=== PATIENT | male | born 1940 | race Two or more races ===

== ENCOUNTER 2021-12-24 17:04 | Inpatient (IN) | payer MEDICARE, OTHER ==
[~2021-12-24] VITALS: Ht 182.9 cm; Wt 81.6 kg
--- NOTE | 2021-12-24 17:22 | NUR ---
Pt is medically cleared by Dr Sheppard.
[2021-12-24] MEDS ORDERED: MAGN400T8 PO (17:26)
[2021-12-24] MEDS ORDERED: MELA3TAB41 PO (17:26)
[2021-12-24] MEDS ORDERED: MAGN400O6 PO (17:26)
[2021-12-24] MEDS ORDERED: ASPI81TA31 PO (17:26)
[2021-12-24] MEDS ORDERED: ASCO500C18 PO (17:26)
[2021-12-24] MEDS ORDERED: FERR325T28 PO (17:26)
[2021-12-24] MEDS ORDERED: BUDE10.2 INH (17:26)
[2021-12-24] MEDS ORDERED: BISA10SU61 RC (17:26)
[2021-12-24] MEDS ORDERED: ACET325T53 PO (17:26)
[2021-12-24] MEDS ORDERED: DOCU100C36 PO (17:26)
[2021-12-24] MEDS ORDERED: TAMS-3 PO (17:26)
--- NOTE | 2021-12-24 17:55 | NUR ---
REPORT WAS GIVEN MHU RN. PT WAS TRANSFERED TO M[facility] ROOM #[id number].
[2021-12-24] MEDS ORDERED: HALOPERIDOL LACTATE 5 MG/1 ML VIAL IV ONE (18:00)
--- NOTE | 2021-12-24 18:02 | NUR ---
Dinner tray provided, pt ate 100% of food.
[2021-12-24] MEDS ORDERED: RISP1TAB7 PO ×2 (19:48)
[2021-12-24] MEDS ORDERED: MAGNESIUM HYDROXIDE 30 ML LIQUID UDC PO PRN (20:00)
[2021-12-24] MEDS ORDERED: MAG HYDROX/AL HYDROX/SIMETH 30 ML LIQUID UDC PO PRN (20:00)
[2021-12-24] MEDS ORDERED: ACETAMINOPHEN 325 MG TABLET PO PRN (20:00)
[2021-12-24] MEDS ORDERED: QUETIAPINE FUMARATE 25 MG TABLET PO PRN (20:00)
[2021-12-24] MEDS ORDERED: BLOOD SUGAR DIAGNOSTIC 1 EACH STRIP VI ONE (20:15)
[2021-12-24 20:48] VITALS: BP 120/63
[2021-12-24] MEDS: ZOLPIDEM 5 MG TABLET PO PRN (21:32)
[2021-12-24] MEDS ORDERED: HOME MED MISCELLANEOUS XX SCH (21:45)
--- NOTE | 2021-12-24 22:00 | NUR ---
ADMITTED AT [facility]OX 1850 81 YEARS OLD MALE TO [facility] ON A 14 DAYS HOLD FOR GD AND DTO. PER HOLD, PATIENT HAS BEEN AGGRESSIVE TOWARD STAFF THROWING OBJETS AT [facility]. HE WAS TAKEN TO [facility] AND PLACED ON HOLD. HOLD IS ON 01/06. UPON ADMISSION, PATIENT IS A/O X 1 HE IS ANXIOUS AND RESTLESS. HE WAS GIVEN SEROQUEL 12.5MG AND LATER AMBIEN 5MG. PATIENT WAS GIVEN HIS ADVISEMENT AND HE WAS INFORMED OF HIS HOLD, HE WAS GIVEN THE BOOKLET OF PATIENT'S RIGHT ON MENTAL HEALTH FACILITIES. PATIENT IS UNDER THE CARE OF DR LEW. MIKE ESCOBAR WAS CALLED TO HAVE PATIENT RECONCILED HIS MEDICATION, AWAITING FOR A CALL BACK. WILL CONTINUE Q15 MIN CHECKS.
[2021-12-25 07:30] VITALS: BP 117/54
[2021-12-25] MEDS ORDERED: BUDESONIDE 0.5 MG/2 ML NEBU NEB SCH (07:30)
[2021-12-25] MEDS ORDERED: ALBUTEROL SULFATE 2.5 MG/3 ML NEBU NEB SCH (07:35)
[2021-12-25] MEDS ORDERED: BISACODYL 10 MG SUPP.RECT RC SCH (09:00)
[2021-12-25] MEDS ORDERED: TAMSULOSIN HCL 0.4 MG CAP.SR.24H PO SCH (09:00)
[2021-12-25] MEDS: ASPIRIN 81 MG TAB.CHEW PO SCH (09:25)
[2021-12-25] MEDS: ASCORBIC ACID 500 MG TABLET PO SCH (09:25)
[2021-12-25] MEDS: FERROUS SULFATE 325 MG TABEC PO SCH (09:25)
[2021-12-25] MEDS: DOCUSATE SODIUM 100 MG CAPSULE PO SCH ×2 (09:25→17:35)
[2021-12-25] MEDS: MAGNESIUM OXIDE 400 MG TABLET PO SCH (09:25)
[2021-12-25] MEDS: FLUTICASONE/VILANTEROL 1 EACH BLST.W.DEV INH SCH (12:09)
[2021-12-25] MEDS ORDERED: ZIPRASIDONE MESYLATE 20 MG VIAL IM ONE (13:15)
[2021-12-25] MEDS ORDERED: risperiDONE-M 0.5 MG TAB.RAPDIS PO PRN (13:30)
[2021-12-25 16:00] VITALS: BP 145/64
[2021-12-25] MEDS ORDERED: RIVASTIGMINE PO (16:18)
[2021-12-25] MEDS: risperiDONE-M 0.5 MG TAB.RAPDIS PO SCH (18:08)
--- NOTE | 2021-12-25 18:45 | NUR ---
Received patient sleeping in his room. Patient is A/O X 1 to person. Pt. is confused, disoriented, forgetful, intrusive. Patient became agitated, combative, and started hitting the entrance door. Dr. Cervantes ordered Geodon 5 mg/0.25 ml IM at 13:16, security was called and 5 staff members were necessary to administer medication, but no force needed. Pt. is compliant with medications. Emotional support given. Fall and safety precautions implemented.
[2021-12-25 20:00] VITALS: BP 119/63
[2021-12-25] MEDS: RIVASTIGMINE TARTRATE 1.5 MG CAPSULE PO SCH (20:18)
[2021-12-25] MEDS: TAMSULOSIN HCL 0.4 MG CAP.SR.24H PO SCH (20:18)
--- NOTE | 2021-12-25 20:45 | NUR ---
RECEIVED PATIENT IN HIS ROOM SITTING IN HIS BED. HE IS NOTED A/O X 1. HE IS FORGETFUL, HE WONDERS AROUND THE UNIT. HE HAS POOR INSIGHT INTO HIS ADMISSION TO MHU. HE REQUITES MULTIPLE REDIRECTION, REALITY CHECKS AND REASSURANCE. PATIENT IS ABLE TO COMPLY WITH ALL HIS MEDICATION REGIMENT. NO AGGRESSIVE OR COMBATIVE BX NOTED AT THIS TIME. HE IS REASSURED FOR HIS SAFETY. SAFETY AND FALL PRECAUTIONS ARE IN PLACE. HIS V/S ARE STABLE. HE IS IN NO DISTRESS. HE WAS GIVEN PO FLUIDS AND SNACKS. WILL CONTINUE TO MONITOR.
[2021-12-25] MEDS: ZOLPIDEM 5 MG TABLET PO PRN (22:44)
[2021-12-26 08:12] VITALS: BP 122/68
[2021-12-26] MEDS: FERROUS SULFATE 325 MG TABEC PO SCH (08:51)
[2021-12-26] MEDS: ASPIRIN 81 MG TAB.CHEW PO SCH (08:51)
[2021-12-26] MEDS: DOCUSATE SODIUM 100 MG CAPSULE PO SCH ×2 (08:51→17:08)
[2021-12-26] MEDS: MAGNESIUM OXIDE 400 MG TABLET PO SCH (08:51)
[2021-12-26] MEDS: risperiDONE-M 0.5 MG TAB.RAPDIS PO SCH ×2 (08:51→17:08)
[2021-12-26] MEDS: FLUTICASONE/VILANTEROL 1 EACH BLST.W.DEV INH SCH (08:52)
[2021-12-26] MEDS: ASCORBIC ACID 500 MG TABLET PO SCH (08:52)
[2021-12-26] MEDS: RIVASTIGMINE TARTRATE 1.5 MG CAPSULE PO SCH ×2 (08:53→20:32)
[2021-12-26] MEDS ORDERED: BISACODYL 10 MG SUPP.RECT RC PRN (09:00)
--- NOTE | 2021-12-26 13:06 | NUR ---
14 DAYS PC HEARING ON HOLD FOR GD AND DTO.
--- NOTE | 2021-12-26 14:38 | NUR ---
DARREN Initial Discharge Note: Pt currently resides at [facility] [place] 2[facility] located at [address] [place] [address] ([phone]). DARREN will contact the facility to discuss pt's return to their facility upon discharge. DARREN will contact pt's daughter, Radha ([phone]) to discuss pt's discharge plan. DARREN will continue to work with pt, family and MD to ensure a safe and proper discharge plan.
--- NOTE | 2021-12-26 14:48 | NUR ---
patient is confused and disoriented wandering around in the unit, required frequent redirection .patient complaint with all po medication. unable to attend in group activity ,with poor insight and poor judgement will continue close motoring.
[2021-12-26 19:55] VITALS: BP 122/74
[2021-12-26] MEDS: ZOLPIDEM 5 MG TABLET PO PRN (20:33)
[2021-12-26] MEDS: TAMSULOSIN HCL 0.4 MG CAP.SR.24H PO SCH (20:33)
--- NOTE | 2021-12-27 02:01 | NUR ---
Patient received in the hallway, ambulatory, unket, A&ox1. Patient is confused, responding to internal stimuli, flight of ideas noted. Patient compliant with medications. Refused hygiene care, educated and explained risks and benefits of good hygiene, patient still refused. Unable to have meaningful conversation d/t confusion. Patient given Ambien prn w/ effectivity as patient slept well during shift. Frequent monitoring in place.
[2021-12-27 07:55] VITALS: BP 113/56
[2021-12-27] MEDS: FERROUS SULFATE 325 MG TABEC PO SCH (08:38)
[2021-12-27] MEDS: DOCUSATE SODIUM 100 MG CAPSULE PO SCH ×2 (08:38→16:49)
[2021-12-27] MEDS: ASPIRIN 81 MG TAB.CHEW PO SCH (08:38)
[2021-12-27] MEDS: RIVASTIGMINE TARTRATE 1.5 MG CAPSULE PO SCH ×2 (08:38→20:16)
[2021-12-27] MEDS: ASCORBIC ACID 500 MG TABLET PO SCH (08:38)
[2021-12-27] MEDS: MAGNESIUM OXIDE 400 MG TABLET PO SCH (08:38)
[2021-12-27] MEDS: risperiDONE-M 0.5 MG TAB.RAPDIS PO SCH ×2 (08:38→16:50)
[2021-12-27] MEDS: FLUTICASONE/VILANTEROL 1 EACH BLST.W.DEV INH SCH (08:41)
[2021-12-27 09:42] LABS: HEMATOCRIT 36.9 % (36.7-47.1); MEAN CORPUSCULAR HEMOGLOBIN 31.7 uug (23.8-33.4); MEAN CORPUSCULAR VOLUME 92.7 fL (73.0-96.2)
[2021-12-27 09:43] LABS: PLATELET COUNT (AUTO) 138 K/uL (152-348)
[2021-12-27] MEDS ORDERED: ZIPRASIDONE MESYLATE 20 MG VIAL IM ONE (13:30)
--- NOTE | 2021-12-27 13:30 | NUR ---
patient is confused and disoriented become agitated and aggressive, pacing in hallway unable to follow direction ,continue banding the exit door attempted to break it ,refused the PRN medication ,Dr. Cervantes notified with IM ordered.
[2021-12-27 16:15] VITALS: BP 113/58
[2021-12-27] MEDS: TAMSULOSIN HCL 0.4 MG CAP.SR.24H PO SCH (20:16)
[2021-12-27] MEDS: ZOLPIDEM 5 MG TABLET PO PRN (21:16)
--- NOTE | 2021-12-28 05:56 | NUR ---
patient slept 7.5 hrs ,no aggressive behavior noted.
[2021-12-28] MEDS: RIVASTIGMINE TARTRATE 1.5 MG CAPSULE PO SCH ×2 (08:17→21:27)
[2021-12-28] MEDS: DOCUSATE SODIUM 100 MG CAPSULE PO SCH ×2 (08:17→17:27)
[2021-12-28] MEDS: MAGNESIUM OXIDE 400 MG TABLET PO SCH (08:17)
[2021-12-28] MEDS: ASCORBIC ACID 500 MG TABLET PO SCH (08:17)
[2021-12-28] MEDS: FERROUS SULFATE 325 MG TABEC PO SCH (08:17)
[2021-12-28] MEDS: ASPIRIN 81 MG TAB.CHEW PO SCH (08:18)
[2021-12-28] MEDS: risperiDONE-M 0.5 MG TAB.RAPDIS PO SCH ×2 (08:18→17:27)
[2021-12-28] MEDS: FLUTICASONE/VILANTEROL 1 EACH BLST.W.DEV INH SCH (08:19)
--- NOTE | 2021-12-28 14:54 | NUR ---
Received patient sleeping in his room. Patient is A/O X 1 to person. Pt. is confused, forgetful, disorganized, fixated on leaving the unit. "Can you please help me to open that door? I want to go home". Pt. asked to call his daughter and left a voice message. Pt. is compliant with medications. Reassurance given. Fall and safety precautions implemented.
[2021-12-28 16:15] VITALS: BP 139/70
[2021-12-28 20:03] VITALS: BP 109/68
--- NOTE | 2021-12-28 20:30 | NUR ---
RECEIVED PATIENT IN THE HALLWAY. HE IS NOTED A/O X 1 TO 2. HE IS FORGETFUL. HE IS NOTED CALM AND COOPERATIVE AT THIS TIME. HIS SPEECH IS TANGENTAL. HE NEEDS REDIRECTION AND REALITY CHECKS. HE IS REASSURED FOR HIS SAFETY. SAFETY AND FALL PRECAUTION ARE IN PLACE. PO FLUIDS AND SNACKS WERE GIVEN TO PATIENT. V/S STABLE. PT IN NO DISTRESS. WILL CONTINUE TO MONITOR
[2021-12-28] MEDS: TAMSULOSIN HCL 0.4 MG CAP.SR.24H PO SCH (21:27)
[2021-12-29 07:45] VITALS: BP 122/57
[2021-12-29] MEDS: RIVASTIGMINE TARTRATE 1.5 MG CAPSULE PO SCH ×2 (08:25→20:50)
[2021-12-29] MEDS: ASPIRIN 81 MG TAB.CHEW PO SCH (08:25)
[2021-12-29] MEDS: MAGNESIUM OXIDE 400 MG TABLET PO SCH (08:25)
[2021-12-29] MEDS: FERROUS SULFATE 325 MG TABEC PO SCH (08:25)
[2021-12-29] MEDS: PROTEIN SUPPLEMENT (PROSTAT) 30 ML LIQUID PO SCH (08:26)
[2021-12-29] MEDS: ASCORBIC ACID 500 MG TABLET PO SCH (08:26)
[2021-12-29] MEDS: risperiDONE-M 0.5 MG TAB.RAPDIS PO SCH ×2 (08:26→16:53)
[2021-12-29] MEDS: DOCUSATE SODIUM 100 MG CAPSULE PO SCH ×2 (08:26→16:53)
[2021-12-29] MEDS: FLUTICASONE/VILANTEROL 1 EACH BLST.W.DEV INH SCH (08:27)
--- NOTE | 2021-12-29 12:37 | NUR ---
Firearms Report: Medical Oncologist completed and submitted a [employer] firearms report for 5150 a danger to others and grave disability certifications. A copy of report has been placed in patient chart.
[2021-12-29] MEDS: OXCARBAZEPINE 150 MG TABLET PO SCH ×2 (14:00→16:54)
--- NOTE | 2021-12-29 15:15 | NUR ---
patient is confused and disoriented wandering in the unit ,standing next to exit door saying ' i want to go home". patient with poor insight and poor judgement ,compliant with all po medication ,wiull continue close monitoring.
[2021-12-29 16:04] VITALS: BP 115/64
[2021-12-29 19:55] VITALS: BP 118/60
[2021-12-29] MEDS: TAMSULOSIN HCL 0.4 MG CAP.SR.24H PO SCH (20:50)
--- NOTE | 2021-12-29 21:00 | NUR ---
RECEIVED PATIENT IN THE HALLWAY. HE IS NOTED A/O X 1. HE IS FORGETFUL. BUT HE IS CALM AND COOPERATIVE UPON APPROACHED. PATIENT IS ABLE TO COMPLY WITH MEDICATION REGIMENT DIET AND CARE. NO AGGRESSIVE/COMBATIVE BX NOTED AT THIS TIME. HE IS REASSURED FOR HIS SAFETY.SAFETY AND FALL PRECAUTIONS ARE IN PLACE. HIS V/S ARE STABLE. PT IS IN NO DISTRESS. HE WAS GIVEN PO FLUIDS AND SNACKS. WILL CONTINUE TO MONITOR.
[2021-12-30 07:30] VITALS: BP 110/67
[2021-12-30] MEDS: DOCUSATE SODIUM 100 MG CAPSULE PO SCH ×2 (09:27→16:42)
[2021-12-30] MEDS: ASPIRIN 81 MG TAB.CHEW PO SCH (09:27)
[2021-12-30] MEDS: RIVASTIGMINE TARTRATE 1.5 MG CAPSULE PO SCH ×2 (09:27→20:15)
[2021-12-30] MEDS: risperiDONE-M 0.5 MG TAB.RAPDIS PO SCH ×2 (09:27→16:41)
[2021-12-30] MEDS: ASCORBIC ACID 500 MG TABLET PO SCH (09:28)
[2021-12-30] MEDS: FERROUS SULFATE 325 MG TABEC PO SCH (09:28)
[2021-12-30] MEDS: MAGNESIUM OXIDE 400 MG TABLET PO SCH (09:28)
[2021-12-30] MEDS: OXCARBAZEPINE 150 MG TABLET PO SCH ×3 (09:28→16:42)
[2021-12-30] MEDS: FLUTICASONE/VILANTEROL 1 EACH BLST.W.DEV INH SCH (09:29)
[2021-12-30] MEDS: PROTEIN SUPPLEMENT (PROSTAT) 30 ML LIQUID PO SCH (09:29)
--- NOTE | 2021-12-30 10:28 | NUR ---
SW Discharge Update: Pt currently resides at [facility] located at [address] [place] [address] ([phone]). Rosa Maria from [facility] customer agent stated pt is welcome back upon discharge per admissions team.
[2021-12-30 15:26] VITALS: BP 129/67
--- NOTE | 2021-12-30 15:30 | NUR ---
Received patient awake in his room. Patient is A/O X 1 to person. Pt. is confused, disoriented, forgetful, redirectable, compliant with medications. Pt. is encourage to vent feelings and emotions. Fall and safety precautions implemented.
[2021-12-30 20:02] VITALS: BP 132/66
[2021-12-30] MEDS: TAMSULOSIN HCL 0.4 MG CAP.SR.24H PO SCH (20:15)
[2021-12-30] MEDS: ZOLPIDEM 5 MG TABLET PO PRN (20:38)
--- NOTE | 2021-12-31 05:07 | NUR ---
Received patient awake, alert and ambulating in the hallway. Patient is A&0x1, noted with confusions, patient is re-directable. Fluids and snacks provided with good appetite. Med compliant.Patient slept intermittently during shift. Closely monitoring observed
[2021-12-31 07:30] VITALS: BP 124/62
[2021-12-31] MEDS: risperiDONE-M 0.5 MG TAB.RAPDIS PO SCH ×2 (08:58→17:18)
[2021-12-31] MEDS: DOCUSATE SODIUM 100 MG CAPSULE PO SCH ×2 (08:58→17:18)
[2021-12-31] MEDS: RIVASTIGMINE TARTRATE 1.5 MG CAPSULE PO SCH ×2 (08:58→20:32)
[2021-12-31] MEDS: ASPIRIN 81 MG TAB.CHEW PO SCH (08:58)
[2021-12-31] MEDS: ASCORBIC ACID 500 MG TABLET PO SCH (08:58)
[2021-12-31] MEDS: FERROUS SULFATE 325 MG TABEC PO SCH (08:59)
[2021-12-31] MEDS: MAGNESIUM OXIDE 400 MG TABLET PO SCH (08:59)
[2021-12-31] MEDS: FLUTICASONE/VILANTEROL 1 EACH BLST.W.DEV INH SCH (08:59)
[2021-12-31] MEDS: OXCARBAZEPINE 150 MG TABLET PO SCH ×3 (08:59→17:18)
[2021-12-31] MEDS: PROTEIN SUPPLEMENT (PROSTAT) 30 ML LIQUID PO SCH (09:00)
--- NOTE | 2021-12-31 15:35 | NUR ---
Received patient sleeping in his room. Patient is A/O X 2 to person. Pt. is disoriented, disorganized, cooperative, forgetful, fixated on leaving the unit and go outside. Pt. states "Can you open the door? Do you have the mcginnis? I want to go home" Patient is compliant with medications. Pt. is encourage to verbalize concerns. Fall and safety precautions implemented.
[2021-12-31 16:00] VITALS: BP 121/61
[2021-12-31 20:16] VITALS: BP 144/70
[2021-12-31] MEDS: ZOLPIDEM 5 MG TABLET PO PRN (20:32)
[2021-12-31] MEDS: TAMSULOSIN HCL 0.4 MG CAP.SR.24H PO SCH (20:32)
--- NOTE | 2022-01-01 06:05 | NUR ---
Patient noted to be sleeping most of the shift. Remains responsive to name and touch. No respiratory distress noted. Good behavior changes noted, patient more re-directable. No aggressive behavior noted. Med compliant. Frequent monitoring observed for safety.
[2022-01-01 07:30] VITALS: BP 109/62
[2022-01-01] MEDS: risperiDONE-M 0.5 MG TAB.RAPDIS PO SCH ×2 (08:50→17:23)
[2022-01-01] MEDS: DOCUSATE SODIUM 100 MG CAPSULE PO SCH ×2 (08:50→17:22)
[2022-01-01] MEDS: ASCORBIC ACID 500 MG TABLET PO SCH (08:50)
[2022-01-01] MEDS: MAGNESIUM OXIDE 400 MG TABLET PO SCH (08:50)
[2022-01-01] MEDS: FERROUS SULFATE 325 MG TABEC PO SCH (08:50)
[2022-01-01] MEDS: RIVASTIGMINE TARTRATE 1.5 MG CAPSULE PO SCH ×2 (08:50→20:43)
[2022-01-01] MEDS: ASPIRIN 81 MG TAB.CHEW PO SCH (08:50)
[2022-01-01] MEDS: OXCARBAZEPINE 150 MG TABLET PO SCH ×3 (08:50→17:22)
[2022-01-01] MEDS: FLUTICASONE/VILANTEROL 1 EACH BLST.W.DEV INH SCH (08:55)
[2022-01-01] MEDS: PROTEIN SUPPLEMENT (PROSTAT) 30 ML LIQUID PO SCH (08:56)
--- NOTE | 2022-01-01 10:08 | NUR ---
DARREN Family Contact: DARREN contacted pt's daughter, Radha ([phone]) and left a voicemail for a call back regarding pt's discharge plan discussion to return to [facility] upon discharge ([phone]) confirmed by Kassi in admissions.
--- NOTE | 2022-01-01 15:23 | NUR ---
Received patient sleeping in his room. Patient is A/O X 1 to person. Pt. is forgetful, disorganized, confused. Pt. states "Why did you take my bed away from my home? My bed works fine". Patient is compliant with medications. Reassurance given. Fall and safety precautions implemented.
[2022-01-01 16:00] VITALS: BP 136/55
[2022-01-01 20:00] VITALS: BP 109/64
[2022-01-01] MEDS: ZOLPIDEM 5 MG TABLET PO PRN (20:44)
[2022-01-01] MEDS: TAMSULOSIN HCL 0.4 MG CAP.SR.24H PO SCH (20:44)
--- NOTE | 2022-01-02 04:50 | NUR ---
Patient is confused, forgetful and anxious. Needs constant re-direction, ambulating in the hallway going to exit doors. Patient re-directable, med compliant. Prn Ambien given, sleeping intermittently during shift total of 7.45. Fall precaution in place and frequent monitoring observed.
[2022-01-02 08:40] VITALS: BP 109/60
[2022-01-02] MEDS: RIVASTIGMINE TARTRATE 1.5 MG CAPSULE PO SCH ×2 (08:50→20:45)
[2022-01-02] MEDS: DOCUSATE SODIUM 100 MG CAPSULE PO SCH ×2 (08:50→17:41)
[2022-01-02] MEDS: ASCORBIC ACID 500 MG TABLET PO SCH (08:50)
[2022-01-02] MEDS: FERROUS SULFATE 325 MG TABEC PO SCH (08:50)
[2022-01-02] MEDS: ASPIRIN 81 MG TAB.CHEW PO SCH (08:50)
[2022-01-02] MEDS: OXCARBAZEPINE 150 MG TABLET PO SCH ×3 (08:51→17:41)
[2022-01-02] MEDS: MAGNESIUM OXIDE 400 MG TABLET PO SCH (08:51)
[2022-01-02] MEDS: risperiDONE-M 0.5 MG TAB.RAPDIS PO SCH ×2 (08:51→17:41)
[2022-01-02] MEDS: PROTEIN SUPPLEMENT (PROSTAT) 30 ML LIQUID PO SCH (08:52)
[2022-01-02] MEDS: FLUTICASONE/VILANTEROL 1 EACH BLST.W.DEV INH SCH (08:52)
[2022-01-02 15:57] VITALS: BP 112/57
--- NOTE | 2022-01-02 16:19 | NUR ---
Pt. is confused, spend hours organizing his room and folding linens, covering his face in room's corner. Pt. thinks his room is his house, and states "I don't want anybody taking furniture from my apartment". Pt. is A/O X 2 to person. Pt. is quiet, calm, cooperative, and compliant with medications. Requires minimal assistance with ADL. Fall and safety precautions implemented.
[2022-01-02 19:44] VITALS: BP 112/50
[2022-01-02] MEDS: TAMSULOSIN HCL 0.4 MG CAP.SR.24H PO SCH (20:45)
[2022-01-03 07:30] VITALS: BP 139/66
[2022-01-03] MEDS: OXCARBAZEPINE 150 MG TABLET PO SCH ×2 (08:10→12:48)
[2022-01-03] MEDS: MAGNESIUM OXIDE 400 MG TABLET PO SCH (08:10)
[2022-01-03] MEDS: ASCORBIC ACID 500 MG TABLET PO SCH (08:10)
[2022-01-03] MEDS: RIVASTIGMINE TARTRATE 1.5 MG CAPSULE PO SCH ×2 (08:10→20:12)
[2022-01-03] MEDS: ASPIRIN 81 MG TAB.CHEW PO SCH (08:10)
[2022-01-03] MEDS: DOCUSATE SODIUM 100 MG CAPSULE PO SCH ×2 (08:10→16:51)
[2022-01-03] MEDS: FERROUS SULFATE 325 MG TABEC PO SCH (08:10)
[2022-01-03] MEDS: risperiDONE-M 0.5 MG TAB.RAPDIS PO SCH ×2 (08:10→16:53)
[2022-01-03] MEDS: PROTEIN SUPPLEMENT (PROSTAT) 30 ML LIQUID PO SCH (08:11)
[2022-01-03] MEDS: FLUTICASONE/VILANTEROL 1 EACH BLST.W.DEV INH SCH (08:11)
--- NOTE | 2022-01-03 14:24 | NUR ---
Received patient is confused and disoriented wandering in the unit ,patient is isolative no interaction with other peers.encourage to attend in group activity , patient with poor insight and poor judgement ,compliant with all po medication ,will continue close monitoring.
[2022-01-03 16:00] VITALS: BP 126/76
[2022-01-03 20:00] VITALS: BP 109/44
[2022-01-03] MEDS: TAMSULOSIN HCL 0.4 MG CAP.SR.24H PO SCH (20:12)
[2022-01-03] MEDS: OXCARBAZEPINE 300 MG TABLET PO SCH (20:12)
--- NOTE | 2022-01-03 21:25 | NUR ---
GPS: Pt.resting in bed. In no acute distress noted. Confused,disoriented and forgetful. Reality re-orientation provided prn. Compliant with his meds.and listens to re-direction from staff. No increased agitation noted. Awol/fall precautions continues. Will continue to monitor.
[2022-01-04 07:57] VITALS: BP 121/50
[2022-01-04] MEDS: FERROUS SULFATE 325 MG TABEC PO SCH (08:35)
[2022-01-04] MEDS: MAGNESIUM OXIDE 400 MG TABLET PO SCH (08:35)
[2022-01-04] MEDS: RIVASTIGMINE TARTRATE 1.5 MG CAPSULE PO SCH ×2 (08:35→20:15)
[2022-01-04] MEDS: OXCARBAZEPINE 150 MG TABLET PO SCH (08:35)
[2022-01-04] MEDS: DOCUSATE SODIUM 100 MG CAPSULE PO SCH ×2 (08:35→17:07)
[2022-01-04] MEDS: risperiDONE-M 0.5 MG TAB.RAPDIS PO SCH ×2 (08:36→17:07)
[2022-01-04] MEDS: FLUTICASONE/VILANTEROL 1 EACH BLST.W.DEV INH SCH (08:36)
[2022-01-04] MEDS: ASPIRIN 81 MG TAB.CHEW PO SCH (08:36)
[2022-01-04] MEDS: ASCORBIC ACID 500 MG TABLET PO SCH (08:36)
[2022-01-04] MEDS: PROTEIN SUPPLEMENT (PROSTAT) 30 ML LIQUID PO SCH (08:37)
[2022-01-04] MEDS: OXCARBAZEPINE 300 MG TABLET PO SCH ×2 (13:09→20:15)
--- NOTE | 2022-01-04 15:11 | NUR ---
Pt. is calm, cooperative, compliant with medications, quiet, forgetful at times. A/O X 2 to person. Requires minimal assistance with ADL. Reassurance given. Fall and safety precautions implemented
[2022-01-04 16:06] VITALS: BP 135/62
[2022-01-04] MEDS: TAMSULOSIN HCL 0.4 MG CAP.SR.24H PO SCH (20:15)
[2022-01-04 20:22] VITALS: BP 134/67
--- NOTE | 2022-01-04 20:54 | NUR ---
GPS: Pt.remains confused and forgetful. Re-directed prn. No aggressive behavior noted. Med.compliant. Will continue to monitor.
[2022-01-05 07:40] VITALS: BP 131/59
[2022-01-05] MEDS: ASCORBIC ACID 500 MG TABLET PO SCH (08:22)
[2022-01-05] MEDS: risperiDONE-M 0.5 MG TAB.RAPDIS PO SCH ×2 (08:22→16:43)
[2022-01-05] MEDS: FERROUS SULFATE 325 MG TABEC PO SCH (08:22)
[2022-01-05] MEDS: OXCARBAZEPINE 150 MG TABLET PO SCH (08:22)
[2022-01-05] MEDS: RIVASTIGMINE TARTRATE 1.5 MG CAPSULE PO SCH ×2 (08:22→20:25)
[2022-01-05] MEDS: ASPIRIN 81 MG TAB.CHEW PO SCH (08:22)
[2022-01-05] MEDS: MAGNESIUM OXIDE 400 MG TABLET PO SCH (08:22)
[2022-01-05] MEDS: DOCUSATE SODIUM 100 MG CAPSULE PO SCH ×2 (08:22→16:43)
[2022-01-05] MEDS: PROTEIN SUPPLEMENT (PROSTAT) 30 ML LIQUID PO SCH (08:27)
[2022-01-05] MEDS: FLUTICASONE/VILANTEROL 1 EACH BLST.W.DEV INH SCH (08:27)
[2022-01-05] MEDS: OXCARBAZEPINE 300 MG TABLET PO SCH ×2 (13:15→20:25)
[2022-01-05] MEDS: MEMANTINE HCL 5 MG TABLET PO SCH (13:15)
--- NOTE | 2022-01-05 14:25 | NUR ---
patient is confused and disoriented wandering in the unit ,patient is isolative no interaction with other peers.encourage to attend in group activity , no agitation or aggressive behavior noted,patient with poor insight and poor judgement ,compliant with all po medication ,will continue close monitoring.
[2022-01-05 16:14] VITALS: BP 121/52
[2022-01-05 20:00] VITALS: BP 140/64
[2022-01-05] MEDS: TAMSULOSIN HCL 0.4 MG CAP.SR.24H PO SCH (20:25)
--- NOTE | 2022-01-05 21:21 | NUR ---
GPS: Remains confused,forgetful. Poor insight to present situation. No aggressive behavior noted. Med.compliant. Safety emphasized. Will continue to monitor.
[2022-01-06 07:30] VITALS: BP 138/58
[2022-01-06] MEDS: risperiDONE-M 0.5 MG TAB.RAPDIS PO SCH ×2 (08:41→17:22)
[2022-01-06] MEDS: ASPIRIN 81 MG TAB.CHEW PO SCH (08:42)
[2022-01-06] MEDS: ASCORBIC ACID 500 MG TABLET PO SCH (08:42)
[2022-01-06] MEDS: RIVASTIGMINE TARTRATE 1.5 MG CAPSULE PO SCH ×2 (08:42→20:10)
[2022-01-06] MEDS: FLUTICASONE/VILANTEROL 1 EACH BLST.W.DEV INH SCH (08:42)
[2022-01-06] MEDS: MEMANTINE HCL 5 MG TABLET PO SCH (08:42)
[2022-01-06] MEDS: OXCARBAZEPINE 150 MG TABLET PO SCH (08:42)
[2022-01-06] MEDS: MAGNESIUM OXIDE 400 MG TABLET PO SCH (08:42)
[2022-01-06] MEDS: DOCUSATE SODIUM 100 MG CAPSULE PO SCH ×2 (08:42→17:22)
[2022-01-06] MEDS: FERROUS SULFATE 325 MG TABEC PO SCH (08:42)
[2022-01-06] MEDS: PROTEIN SUPPLEMENT (PROSTAT) 30 ML LIQUID PO SCH (08:43)
[2022-01-06] MEDS: OXCARBAZEPINE 300 MG TABLET PO SCH ×2 (13:06→20:10)
--- NOTE | 2022-01-06 14:47 | NUR ---
Patient is withdrawn, isolative, calm, cooperative, quiet. A/O X 2 to person. Pt. likes to keep himself busy either organizing cabinets or folding linens and blankets. Ambulates without assistance. Requires minimal assistance with ADL. Active listening provided. Fall and safety precautions implemented.
[2022-01-06 15:07] VITALS: BP 104/47
[2022-01-06 19:19] VITALS: BP 92/44
[2022-01-06] MEDS: TAMSULOSIN HCL 0.4 MG CAP.SR.24H PO SCH (20:10)
--- NOTE | 2022-01-07 04:13 | NUR ---
Patient has been confused and disoriented. Up multiple times during the night looking for the bathroom and needing reorientation. The patient is fidgety and removes the blankets and pillows from the bed over and over. No aggressive behavior is noted and the patient has been medication compliant. Oral food and fluids encouraged. Safety Stratiges are in place.
[2022-01-07 07:30] VITALS: BP 119/63
[2022-01-07] MEDS: DOCUSATE SODIUM 100 MG CAPSULE PO SCH ×2 (08:27→17:11)
[2022-01-07] MEDS: OXCARBAZEPINE 300 MG TABLET PO SCH ×3 (08:27→20:22)
[2022-01-07] MEDS: risperiDONE-M 0.5 MG TAB.RAPDIS PO SCH ×2 (08:27→17:11)
[2022-01-07] MEDS: MAGNESIUM OXIDE 400 MG TABLET PO SCH (08:27)
[2022-01-07] MEDS: MEMANTINE HCL 5 MG TABLET PO SCH (08:27)
[2022-01-07] MEDS: ASCORBIC ACID 500 MG TABLET PO SCH (08:27)
[2022-01-07] MEDS: FERROUS SULFATE 325 MG TABEC PO SCH (08:27)
[2022-01-07] MEDS: RIVASTIGMINE TARTRATE 1.5 MG CAPSULE PO SCH ×2 (08:27→20:22)
[2022-01-07] MEDS: ASPIRIN 81 MG TAB.CHEW PO SCH (08:27)
[2022-01-07] MEDS: FLUTICASONE/VILANTEROL 1 EACH BLST.W.DEV INH SCH (08:28)
[2022-01-07] MEDS: PROTEIN SUPPLEMENT (PROSTAT) 30 ML LIQUID PO SCH (08:28)
--- NOTE | 2022-01-07 15:25 | NUR ---
Patient is cooperative with nursing care, quiet, confused, engage in cleaning his room, organizing his cabinets, and making his bed. Pt. is engaged in group activities today. Pt. is labile, flat and withdrawn at times. Compliant with medications. Reassurance given. Fall and safety precautions implemented.
[2022-01-07 16:00] VITALS: BP 105/45
[2022-01-07 19:53] VITALS: BP 118/56
[2022-01-07] MEDS: TAMSULOSIN HCL 0.4 MG CAP.SR.24H PO SCH (20:22)
[2022-01-07] MEDS ORDERED: MELATONIN 3 MG TABLET PO SCH (21:00)
--- NOTE | 2022-01-08 06:53 | NUR ---
GPS: Pt.slept 4 hrs.last night. Got up a few times and needed to be re-directed. No increased agitation noted. Reality re-orientation provided. Needs attended. Will continue to monitor.
[2022-01-08 07:46] VITALS: BP 131/53
[2022-01-08] MEDS: MAGNESIUM OXIDE 400 MG TABLET PO SCH (08:28)
[2022-01-08] MEDS: ASCORBIC ACID 500 MG TABLET PO SCH (08:28)
[2022-01-08] MEDS: OXCARBAZEPINE 300 MG TABLET PO SCH ×3 (08:28→20:09)
[2022-01-08] MEDS: RIVASTIGMINE TARTRATE 1.5 MG CAPSULE PO SCH ×2 (08:28→20:09)
[2022-01-08] MEDS: DOCUSATE SODIUM 100 MG CAPSULE PO SCH ×2 (08:28→17:12)
[2022-01-08] MEDS: FERROUS SULFATE 325 MG TABEC PO SCH (08:28)
[2022-01-08] MEDS: risperiDONE-M 0.5 MG TAB.RAPDIS PO SCH ×2 (08:29→17:13)
[2022-01-08] MEDS: ASPIRIN 81 MG TAB.CHEW PO SCH (08:29)
[2022-01-08] MEDS: MEMANTINE HCL 5 MG TABLET PO SCH (08:29)
[2022-01-08] MEDS: FLUTICASONE/VILANTEROL 1 EACH BLST.W.DEV INH SCH (08:29)
[2022-01-08] MEDS: PROTEIN SUPPLEMENT (PROSTAT) 30 ML LIQUID PO SCH (08:29)
--- NOTE | 2022-01-08 15:05 | NUR ---
Patient is pacing in the hallway, flat affect, quiet, redirectable, compliant with medications. A/O X 2 to person. Requires minimal assistance with ADL. Reality orientation provided. Fall and safety precautions implemented.
[2022-01-08 16:45] VITALS: BP 107/59
[2022-01-08 19:56] VITALS: BP 140/63
[2022-01-08] MEDS: TAMSULOSIN HCL 0.4 MG CAP.SR.24H PO SCH (20:09)
[2022-01-08] MEDS ORDERED: MELATONIN 3 MG TABLET PO SCH (21:00)
[2022-01-09 07:37] VITALS: BP 118/53
[2022-01-09] MEDS: PROTEIN SUPPLEMENT (PROSTAT) 30 ML LIQUID PO SCH (08:00)
[2022-01-09] MEDS: MAGNESIUM OXIDE 400 MG TABLET PO SCH (08:07)
[2022-01-09] MEDS: OXCARBAZEPINE 300 MG TABLET PO SCH ×2 (08:07→14:14)
[2022-01-09] MEDS: DOCUSATE SODIUM 100 MG CAPSULE PO SCH (08:08)
[2022-01-09] MEDS: ASCORBIC ACID 500 MG TABLET PO SCH (08:08)
[2022-01-09] MEDS: ASPIRIN 81 MG TAB.CHEW PO SCH (08:08)
[2022-01-09] MEDS: MEMANTINE HCL 5 MG TABLET PO SCH (08:08)
[2022-01-09] MEDS: FERROUS SULFATE 325 MG TABEC PO SCH (08:08)
[2022-01-09] MEDS: risperiDONE-M 0.5 MG TAB.RAPDIS PO SCH (08:08)
[2022-01-09] MEDS: FLUTICASONE/VILANTEROL 1 EACH BLST.W.DEV INH SCH (08:09)
[2022-01-09] MEDS: RIVASTIGMINE TARTRATE 1.5 MG CAPSULE PO SCH (09:29)
--- NOTE | 2022-01-09 15:30 | NUR ---
Discharge to [facility] via ambulance at 3pm ,patient is alert and oriented x2-3 ,ambulating in the room.denies any pain or discomfort. [facility] with Joon HARPER .all personal belonging returned to patient.
== END 2022-01-09 15:30 | DRG 885 ==
LOC: ER 17:04 → GPS 18:06
PROVIDERS: ADMIT Psychiatry & Neurology Psychiatry
DX: F39 Unspecified mood [affective] disorder (principal); F03.91 Unspecified dementia, unspecified severity, with behavioral disturbance; F29 Unspecified psychosis not due to a substance or known physiological condition; F20.9 Schizophrenia, unspecified; J44.9 Chronic obstructive pulmonary disease, unspecified; F17.210 Nicotine dependence, cigarettes, uncomplicated; I10 Essential (primary) hypertension; D64.9 Anemia, unspecified; Z20.822 Contact with and (suspected) exposure to COVID-19; N40.0 Benign prostatic hyperplasia without lower urinary tract symptoms
CPT/HCPCS: 36415; 85025; 85049; 97161; A4663; J3486